=== PATIENT | female | born 1990 | race Two or more races ===

== ENCOUNTER 2020-11-16 11:20 | Emergency (ER) | payer SELFPAY ==
[2020-11-16 12:25] LABS: #Eosinphils 0.1 10x3/uL (0.0-0.5); #Monocytes 0.4 10x3/uL (0.0-1.1); #Neutrophils 4.3 10x3/uL (1.5-8.4); %Basophils 0.5 % (0.0-2.0); %Eosinophils 1.2 % (0.0-6.0); %Lymphocytes 24.7 % (18.0-47.0); %Monocytes 6.4 % (0.0-10.0); %Neutrophils 66.9 % (40.0-75.0); Hemoglobin 12.3 g/dL (12.0-15.5); Mean Corpuscular HGB CONC 32.4 g/dL (32.0-36.0); Mean Corpuscular Hemoglobin 28.7 pg (27.0-33.0); Mean Corpuscular Volume 88.8 fl (81.6-98.3); Mean Platelet Volume 10.6 fl (7.4-10.4); Platelet Count 260 10x3/uL (150-450); RBC Distribution Width 13.2 % (11.5-14.5); Red Blood Cell (RBC) Count 4.28 10x6/uL (3.90-5.03); White Blood Cell (WBC) Count 6.4 10x3/uL (3.5-10.5)
[2020-11-16 12:36] LABS: ALT (SGPT) 10 U/L (8-55); AST (SGOT) 12 U/L (5-34); Albumin 4.3 g/dL (3.5-5.0); Alkaline Phosphatase 56 U/L (40-110); Anion Gap 10 mmol/L (10-20); BUN (Urea Nitrogen) 4 mg/dL (7.0-18.7); Bilirubin, Total 0.6 mg/dL (0.2-1.2); Calc. Creatinine Clearance 0 mL/min (70-130); Calcium 9.2 mg/dL (7.8-10.44); Carbon Dioxide 27 mmol/L (22-29); Chloride 108 mmol/L (98-107); Globulin 2.9 g/dL (2.4-3.5); Glucose 106 mg/dL (70-105); Potassium 3.3 mmol/L (3.5-5.1); Protein, Total 7.2 g/dL (6.0-8.3); Sodium 142 mmol/L (136-145)
== END 2020-11-16 12:57 | disposition home or self-care (01) ==
LOC: CSHERS 11:20
DX: R00.2 Palpitations (principal); E87.6 Hypokalemia
CPT/HCPCS: 71045; 80053; 84484; 85025; 93005